=== PATIENT | female | born 1970 | race Caucasian/White ===

== ENCOUNTER 2020-08-21 06:32 | Observation (INO) ==
[2020-08-21 07:37] LABS: ABS Lymphocytes 0.8 10^3/ul (1.0-4.8); ABS Monocytes 0.6 10^3/ul (0-0.8); Eosinophil % 0.6 %; Hematocrit 27 % (35-47); Hemoglobin 8.9 g/dL (12.0-16.0); Mean Corpuscular HGB Conc 32 g/dL (31-36); Mean Corpuscular Hemoglobin 24 pg (27-31); Mean Corpuscular Volume 75 fL (80-97); Mean Platelet Volume 8.5 fL (7.4-10.4); Platelet Count 226 10^3/uL (150-450); Red Blood Count 3.64 10^6 /uL (3.70-4.87); Red Cell Distribution Width 17 % (10-15); White Blood Count 6.4 10^3/uL (3.5-10.8)
[2020-08-21 07:49] LABS: ALT 8 U/L (7-52); AST 12 U/L (13-39); Albumin 3.7 g/dL (3.2-5.2); Albumin/Globulin Ratio 1.2 (1-3); Alkaline Phosphatase 48 U/L (35-149); Anion Gap 5 mmol/L (2-11); Blood Urea Nitrogen 10 mg/dL (6-24); CO2 Carbon Dioxide 24 mmol/L (22-32); Calcium 8.6 mg/dL (8.6-10.3); Chloride 107 mmol/L (101-111); EGFR African American 92.6 (>60); EGFR Non-African American 76.6 (>60); Globulin 3.1 g/dL (2-4); Glucose 90 mg/dL (70-100); Lipase 28 U/L (11.0-82.0); Potassium 3.8 mmol/L (3.5-5.0); Sodium 136 mmol/L (135-145); Total Protein 6.8 g/dL (6.4-8.9)
[2020-08-21 07:51] LABS: Troponin I 0.01 ng/mL (<0.03)
[2020-08-21] MEDS ORDERED: Iohexol 350 (CONTRAST) 500 ML MDV IV ONE (08:45)
[2020-08-21 11:18] LABS: Activated Partial Thrombo Time 24.6 seconds (26.0-38.0); INR 1.09 (0.86-1.15)
[2020-08-21 12:28] LABS: % Iron Saturation 6 % (15-55); Iron 30 ug/dL (50-212); Total Iron Binding Capacity 524 mcg/dL (250-450); Transferrin 374 mg/dL (203-362); Unsaturated Iron Binding < 509 ug/dL
[2020-08-21 12:49] LABS: Ferritin 8.7 ng/mL (11-307)
[2020-08-21] MEDS ORDERED: Iron Sucrose 200 MG in NS 0.9% 100 ml BAG 100 ML IVPB ONE (16:00)
[2020-08-22 05:53] LABS: ABS Eosinophils 0.1 10^3/ul (0-0.6); ABS Lymphocytes 0.8 10^3/ul (1.0-4.8); ABS Monocytes 0.6 10^3/ul (0-0.8); ABS Neutrophils 4.3 10^3/ul (1.5-7.7); Eosinophil % 1.3 %; Hematocrit 29 % (35-47); Hemoglobin 9.1 g/dL (12.0-16.0); Lymphocyte % 13.5 %; Mean Corpuscular HGB Conc 31 g/dL (31-36); Mean Corpuscular Hemoglobin 24 pg (27-31); Mean Corpuscular Volume 76 fL (80-97); Mean Platelet Volume 8.2 fL (7.4-10.4); Platelet Count 236 10^3/uL (150-450); Red Blood Count 3.81 10^6 /uL (3.70-4.87); Red Cell Distribution Width 17 % (10-15); White Blood Count 5.8 10^3/uL (3.5-10.8)
[2020-08-22] MEDS ORDERED: Iron Sucrose 200 MG in NS 0.9% 100 ml BAG 100 ML IVPB ONE (09:45)
[2020-08-22] MEDS ORDERED: Cholecalciferol (VIT D3) 50,000 UNIT CAP (NF) PO ONE (11:05)
[2020-08-22 12:00] VITALS: BP 112/67
== END 2020-08-22 14:00 | disposition home or self-care (01) ==
LOC: ED 06:32 → MED 06:32
PROVIDERS: ADMIT Hospitalist; ATTEND Internal Medicine